=== PATIENT | female | born 1980 | race Caucasian/White ===

== ENCOUNTER 2025-01-11 10:01 | Outpatient (CLI) | payer BC, SELFPAY ==
--- OUTSIDE RECORDS SUMMARY | 2016-07-04 09:00 | XMS_ITS | Continuity of Care Document ---
Author Organization [facility] Address Corporate Office [address] [place] [address] Phone Care Team Providers Care Certified Mortician Name Role Phone Kiran Wan M.D. Unavailable Unavailable Allergies, Adverse Reactions, Alerts Substance Reaction Status Criticality ATORVASTATIN CALCIUM Active No Info rmation PSEUDOEPHEDRINE HCL Active No Infor mation naproxen Active No Information Medications Medication Instructions Dosage Effective Dates (start - stop) Status Comments No Drug Therapy Prescribed Procedures Procedure Date OFFICE/OUTPATIENT VISIT, EST OFFICE/OUTPATIENT VISIT, NEW Advance Directives Directive Yes / No Effective Date File Name No Information Encounters Encounter Description Practice Location Reason(s) For Visit Diagnoses Date Provider Providers Copied on Encounter OFFICE/OUTPATI ENT VISIT, [facility], Corporate [id number] [place], [place], [id number], tel:[phone] [facility] [place] corneal abrasion OD (chief complaint) Corneal abrasion, right, subsequent encounter [facility]. [address], [place], [place], [id number]. tel:[phone] OFFICE/OUTPATI ENT VISIT, [facility] [id number] [place], [place], [id number], [place] tel:[phone] [facility] [place] pain (chief complaint) Corneal abrasion w/o FB of right eye, initial encounter [facility]. [address], [place], [place], [id number]. tel:[phone] Family History Family Member Type Diagnosis Age At Onset No Information Payers Payer name Insurance type Covered republican ID Amy puente(s) [facility] [id number] Social History Type Description Quantity Date Captured Comments Alcohol Use Details Unknown Caffeine Use Details Unknown Tobacco Use Status No Information Smoking Status No Information Sex Female Chief Complaint And Reason For Visit From encounter dated '07/04/2016 14:00'. corneal abrasion OD (chief complaint). Description: The 35 year old female presents for evaluation of corneal abrasion OD in the right eye. It started about 3 day(s) ago. The onset was sudden. It affects OD. The condition is severe. The condition is described as painful. Pt is still using drops andOD is feeling much better. Vision is still a little blurry. Reason For Referral Reason For Referral No Information History Of Present Illness Encounter Date Complaint History Of Prese nt Illness corneal abrasion OD The 35 year old female presents for evaluation of corneal abrasion OD in the right eye. It started about 3 day(s) ago. The onset was sudden. It affects OD. The condition is severe. The condition is described as painful. Pt is still using drops and OD is feeling much better. Vision is still a little blurry. pain The 35 year old female presents for evaluation of pain in the right eye. It started about 4-5 hour(s) ago. It occurs all the time. The onset was sudden. It affects OD. The condition is severe. The condition is described as painful. Archie poked her in her OD. Has pain and burning sensation in it. Vision is blurry. Came from the [facility]. They prescribed Polymyxin drops. She last used it at 1:00 today. Functional Status Date Functional Assessmen t No Information Medications Administered Medication Instructions Dosage Effective Dates (start - stop) Status Comments No Drug Therapy Prescribed Instructions Date Instruction Additional Infor benedicto Return in as needed Related to C orneal abrasion, right, subsequent encounter Impression/Plan - We ll healed. Keep using the drops through Thursday night, then stop.Call if pain starts back up, or vision worsens. Related to Corneal abrasion, right, subsequent encounter Follow up - Return in as needed Related to Corneal abrasion, right, subsequent encounter Return on Thursday for a follow up exam Related to Corneal abrasion w/o FB of right eye, initial encounter Impression/Plan - Co rneal abrasion accounts for patient's symptoms today. Explained the importance of preventing an eye infection with topical antibiotic eye drops. Patient should use drops that were prescribed by [facility] once in the right eye every 4 hours while awake and follow up in the clinic for an additional eye exam. Call if worsening eye pain, decreased vision or other concerns. Related to Corneal abrasion w/o FB of right eye, initial encounter Follow up - Return o n Thursday for a follow up exam Related to Corneal abrasion w/o FB of right eye, initial encounter Assessments Type Assessment Date assessment Corneal abrasion, right, subsequ ent encounter impression Corneal abrasion, right, subsequ ent encounter: S05.01xD. Patient Care Teams Name Effective Dates (start - stop) Status Members No Information
--- NOTE | ~2025-01-11 | MM_ITS ---
CORRECTED REPORT Corrected examination description to MM Screening raffi implant BI w lori [facility] 01/11/25 This report was recreated on 01/11/25. Original report was EXAMINATION: MM Screening raffi implant BI w lori HISTORY: Screening TECHNIQUE: Craniocaudal and mediolateral oblique 3-D tomosynthesis images were obtained and synthetic 2-D images were generated. CAD analysis was submitted and interpreted. COMPARISON: No prior mammogram is available for comparison at this institution. BREAST PARENCHYMAL COMPOSITION: Not dense: There are scattered areas of fibroglandular density. FINDINGS: There is no evidence of suspicious mass, calcification, or architectural distortion to suggest malignancy in either breast. There has been no suspicious interval change. IMPRESSION: 1. No mammographic evidence of malignancy. 2. Recommend routine screening mammography in one year. BI-RADS Category 1: Negative Reviewed, dictated and finalized at location B.
--- OUTSIDE RECORDS SUMMARY | 2025-01-11 10:45 | XMS_ITS | Clinical Summary ---
Author Organization 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 Role Phone No, Physician Primary Care Provider [phone] Allergies Active Allergy Reactions Criticality Noted Date Comments Lansoprazole Palpitations Low 07/26/2021 Omeprazole Palpitations Low 07/26/2021 Pseudoephedrine Palpitations Low 07/26/2021 Medications escitalopram (LEXAPRO) 20 mg tablet Take 20 mg by mouth daily Active rosuvastatin (CRESTOR) 40 mg tablet Take 40 mg by mouth daily Active ondansetron (ZOFRAN) 4 mg tablet Take 1 tablet (4 mg total) by mouth every 6 (six) hours 12 tablet 07/26/2021 Active Surgical History Surgery Date Site/Laterality Comments SINUS SURGERY Medical History Medical History Date Comments Migraine Social History Tobacco Use Types Packs/Day Years Used Date Smoking Tobacco: Never Assessed Comments Unknown Sex and Gender Information Value Date Recorded Sex Assigned at Not on file Legal Sex Female 6:02 PM [employer] Gender Identity Not on file Sexual Orientation Not on file Obstetrics History Last Filed Vital Signs Vital Sign Reading Time Taken Comments Blood Pressure 104/68 07/26/2021 4:23 PM CDT Pulse 84 07/26/2021 4:23 PM CDT Temperature 36.3 C (97.4 F) 07/26/2021 1:25 PM CDT Respiratory Rate 18 07/26/2021 4:23 PM CDT Oxygen Saturation 100% 07/26/2021 4:23 PM CDT Inhaled Oxygen Concentration - - Weight 54.4 kg (120 lb) 07/26/2021 1:25 PM CDT Height - - Body Mass Index - - Plan of Treatment Not on file Insurance Care Teams C[employer] Grain Or Livestock Farm Manager Relationship Specialty Start Date End Date No, Physician PCP - General 07/26/21
== END 2025-01-11 10:02 | disposition home or self-care (01) ==
DX: Z12.31 Encounter for screening mammogram for malignant neoplasm of breast (principal)
CPT/HCPCS: 77063; 77067